=== PATIENT | male | born 1995 | race Hispanic/Latino ===

== ENCOUNTER 2022-12-09 08:29 | Emergency (ER) | payer SELFPAY ==
--- NOTE | ~2022-12-09 | CT_ITS ---
EXAMINATION: CT abdomen pelvis w con DATE: 12/09/2022 10:05 INDICATION: Right flank pain. Fever. TECHNIQUE: Computed tomography (CT) of the abdomen and pelvis was performed with 100 mL Omnipaque 350 intravenous contrast. Automated exposure control and iterative reconstruction technique were employe d. The dose-length product was 221.19 mGy-cm. COMPARISON: None. FINDINGS: The visualized portions of the lung bases demonstrate mild atelectasis. No pleural effusion . The heart size is normal. No pericardial effusion. The liver, spleen, pancreas, adrenal glands, and right kidney are normal. There is focal cortical thinning of left kidney. There are no dilated loops of bowel. The appendix is normal. There are no pathologically enlarged lymph nodes. There is no free intraperitoneal fluid. There are chronic bilateral L5 pars defects. There is mild thoracic spondylos is. IMPRESSION: 1. No etiology for the patient's symptoms. Reviewed, dictated and finalized at location A.
[2022-12-09 08:37] VITALS: BP 107/76; PULSE 88; RESP 18; TEMP 36.9; O2SAT 99
[2022-12-09 09:11] LABS: Basophils Percent Auto 0.5 % (0.2-1.2); Eosinophils Absolute Auto 0.2 K/mm3 (0-0.3); Eosinophils Percent Auto 2.4 % (0-4.4); Hematocrit 46.1 % (42.0-52.0); Hemoglobin 15.4 g/dL (14.0-18.0); Immature Granulocyte Absolute 0.03 K/mm3 (0.00-0.031); Immature Granulocyte Percent A 0.4 % (0-0.5); Lymphocytes Absolute Auto 1.53 K/mm3 (0.9-3.2); Mean Corpuscular HGB Conc 33.4 g/dl (32-36); Mean Corpuscular Hemoglobin 30.3 pg (26-34); Mean Corpuscular Volume 90.6 fl (80-100); Mean Platelet Volume 9.1 fl (7.4-10.4); Monocytes Absolute Auto 1.1 K/mm3 (0.1-0.6); Monocytes Percent Auto 14.1 % (2.6-8.5); Neutrophils Absolute Auto 5.1 K/mm3 (1.3-6.7); Neutrophils Percent Auto 63.6 % (45.5-73.1); Platelet Count Result 280 k/mm3 (150-375); Red Blood Count 5.09 M/mm3 (4.6-6.20); Red Cell Distribution Width 12.9 % (11.5-14.5)
[2022-12-09 09:16] LABS: Appearance Urine Clear (Clear); Bacteria Urine None Seen /hpf; Bilirubin Urine Negative (Negative); Blood Urine Negative (Negative); Color Urine Yellow (Yellow); Glucose Urine UA Negative (Negative); Ketones Urine Negative (Negative); Leukocyte Esterase Ur Negative LEU/UL (Negative); Nitrate Urine Negative (Negative); Non Pathogenic Casts 0-2; Protein Urine Trace mg/dL (Negative); RBC Urine 0-2 /hpf (0-2); Specific Grav Ur 1.029 (1.001-1.035); Squamous Epithelial Cell Urine None seen /hpf (Few); WBC Urine 0-5 /hpf; pH Urine 6.5 (5.0-9.0)
[2022-12-09 09:21] LABS: Add Urine Microscopic? YES
[2022-12-09 09:22] LABS: Alanine Aminotransferase 29 U/L (6-50); Albumin Level 4.3 g/dL (3.5-5.1); Alkaline Phosphatase 69 U/L (38-126); Anion Gap 6 mmol/L (8-16); Aspartate Amino Transferase 29 U/L (17-59); Bilirubin,Total 0.5 mg/dL (0.2-1.3); Blood Urea Nitrogen 14 mg/dL (9-20); Calcium 8.6 mg/dL (8.4-10.2); Carbon Dioxide 33 mmol/L (22-30); Chloride 99 mmol/L (98-107); Estimated Glomerular Filt Rate > 60; Glucose 100 mg/dL (65-110); Sodium 138 mmol/L (137-145)
--- NOTE | 2022-12-09 09:36 | ED.GENADULT ---
HPI - General Adult General Chief complaint: Urogenital-Male Stated complaint: FLANK/BACK PAIN Time Seen by Provider: 12/09/22 08:58 History of Present Illness HPI narrative: Patient is a 27-year-old [place]-speaking male here for evaluation of right flank pain x1 day. Patient states the pain came on while he was working his job yesterday. Described as a tightness in his right low back. The pain does not radiate. He denies any trauma to his back. He has had subjective chills yesterday but did not take his temperature. No dysuria, urgency or frequency, numbness or tingling, nausea or vomiting, weakness in the limbs. Reports pain in his back when he walks. No history of IV drug use. Related Data Allergies Allergy/AdvReac Type Severity Reaction Status Date / Time No Known Allergies Allergy Verified 12/09/22 08:52 Review of Systems Review of Systems: Gen.: Denies fevers or chills Eyes: Denies eye pain or visual change ENT: Denies congestion Respiratory: Denies shortness of breath or cough CV: Denies chest pain or palpitations GI: Denies abdominal pain nausea, emesis or diarrhea denies burning, urgency, frequency or hematuria Musculoskeletal: Reports back pain Neuro: Denies numbness, tingling, weakness or focal weakness Skin: Denies rash Except as documented, all other systems reviewed and negative Exam Narrative: APPEARANCE: Well appearing, no pain in distress, well-nourished. Head: Normocephalic and atraumatic. EYES: PERRLA/EOMI, conjunctivae clear NOSE: No nasal drainage EARS: External ear normal in appearance THROAT: Oropharynx is clear. Mucous membranes are moist. NECK: Supple. No adenopathy, no masses. RESPIRATORY: Airway patent, respirations nonlabored. Clear to auscultation bilaterally, no rales, rhonchi, wheezing. CARDIOVASCULAR: Regular rate and rhythm without murmurs, rubs, or gallops. ABDOMINAL: Normoactive bowel sounds. Soft, nontender, nondistended. No rebound tenderness or guarding. MUSCULOSKELETAL: Patient reports pain in his back when he raises his right leg. There is right CVA tenderness. No midline tenderness along the CT or L-spine. Normal gait. NEURO: Normal speech. No focal neurologic deficits. SKIN: Skin is warm and dry. No rashes. PSYCHIATRIC: Normal affect/mood. Course Vital Signs Vital signs: Vital Signs Temperature 98.4 F 12/09/22 08:37 Pulse Rate 88 12/09/22 08:37 Respiratory Rate 18 12/09/22 08:37 Blood Pressure 107/76 12/09/22 08:37 Pulse Oximetry 99 12/09/22 08:37 Temperature 98.4 F 12/09/22 08:37 Pulse Rate 88 12/09/22 08:37 Respiratory Rate 18 12/09/22 08:37 Blood Pressure 107/76 12/09/22 08:37 Pulse Oximetry 99 12/09/22 08:37 Medical Decision Making MDM Narrative Medical decision making narrative: 27-year-old male here for evaluation of right flank/low back pain x1 day. He is nontoxic in appearance and has normal vital signs. He has some CVA tenderness on the right and a positive straight leg raise. He reports some subjective fevers at home but his white count, ESR and CRP are normal and he is afebrile here. CT abdomen pelvis without acute findings. Likely MSK sprain, feeling improved after Tylenol and ibuprofen in the ED. He be discharged home to follow-up with his PMD. Vital Signs Vital Signs: Vital Signs Temperature 98.4 F 12/09/22 08:37 Pulse Rate 88 12/09/22 08:37 Respiratory Rate 18 12/09/22 08:37 Blood Pressure 107/76 12/09/22 08:37 Pulse Oximetry 99 12/09/22 08:37 Temperature 98.4 F 12/09/22 08:37 Pulse Rate 88 12/09/22 08:37 Respiratory Rate 18 12/09/22 08:37 Blood Pressure 107/76 12/09/22 08:37 Pulse Oximetry 99 12/09/22 08:37 Lab Data 12/09/22 08:54 12/09/22 08:54 Labs: Lab Results 12/09/22 12/09/22 Range/Units 08:54 08:55 WBC 8.0 (4.5-10.0) K/mm3 RBC 5.09 (4.6-6.20) M/mm3 Hgb 15.4 (14.0-18.0) g/dL Hct 46
[2022-12-09] MEDS: IBUPROFEN 600 MG TABLET PO (09:42)
[2022-12-09] MEDS: ACETAMINOPHEN 325 MG TABLET 650 MG PO (09:42)
[2022-12-09 09:57] LABS: CRP 1.1 mg/dL (<1.0)
[2022-12-09 10:09] LABS: Erythrocyte Sedimentation Rate 1 mm/hr (0-20)
[2022-12-09] MEDS: LIDOCAINE 5% PATCH 1 PATCH TRANSDERM (10:18)
[2022-12-09 10:55] VITALS: BP 104/70; PULSE 74; RESP 18; O2SAT 98
== END 2022-12-09 10:55 | disposition home or self-care (01) ==
PROVIDERS: Emergency Medicine; Emergency Provider Physician Assistant
DX: S39.012A Strain of muscle, fascia and tendon of lower back, initial encounter (principal); X58.XXXA Exposure to other specified factors, initial encounter
CPT/HCPCS: 36415; 74177; 80053; 81001; 85025; 85652; 86140; 99283; 99284; A9270; Q9967